=== PATIENT | female | born 1940 | race Two or more races ===

== ENCOUNTER 2020-12-11 01:49 | Inpatient (IN) | payer MEDICARE, BC ==
[~2020-12-11] VITALS: Ht 162.6 cm; Wt 72.6 kg
--- NOTE | 2020-12-11 02:03 | NUR ---
PT AAOX4. [id number] FROM HOME. 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 PER RA PT WAS GIVEN 1SPRAY OF NITRO AND ASPIRIN 162MG. PT PLACED IN BED 3 ON PREPARATION SUPERVISOR AND PULSE OX. PT DENIES CP, VSS. ERIKA KRISHNAMURTHY MD FOR EVAL.
--- NOTE | 2020-12-11 02:27 | NUR ---
BLOOD WORK COLLECTED, SENT TO LAB .
--- NOTE | 2020-12-11 02:27 | NUR ---
CALLED LAB FOR COVID SWAB
[2020-12-11 02:37] LABS: BASOPHILS % (AUTO) 0.6 % (0.0-2.0); EOSINOPHILS % (AUTO) 3.4 % (0.0-6.0); HEMATOCRIT 34 % (33-45); HEMOGLOBIN 11.2 g/dL (11.5-14.8); LYMPHOCYTES # (AUTO) 1.3 /CMM (0.8-4.8); LYMPHOCYTES % (AUTO) 26.7 % (20.0-44.0); MEAN CORPUSCULAR HGB CONC 33 g/dl (31.0-36.0); MEAN CORPUSCULAR VOLUME 92 fL (82-100); MONOCYTES # (AUTO) 0.6 /CMM (0.1-1.30); MONOCYTES % (AUTO) 11.3 % (2.0-12.0); NEUTROPHILS # (AUTO) 2.9 /CMM (1.8-8.9); PLATELET COUNT (AUTO) 167 /CMM (150-450); RED BLOOD CELL COUNT(AUTO) 3.68 MIL/uL (4.0-5.2)
--- NOTE | 2020-12-11 02:41 | NUR ---
COVID SWABBED, SENT TO LAB
[2020-12-11] MEDS ORDERED: IRBE150T28 PO (02:45)
[2020-12-11] MEDS ORDERED: ROSU20TA2 PO (02:45)
[2020-12-11] MEDS ORDERED: CARV25TA2 PO (02:45)
[2020-12-11] MEDS ORDERED: CHLO25TA2 PO (02:45)
[2020-12-11] MEDS ORDERED: CILO100T PO (02:45)
[2020-12-11] MEDS ORDERED: LEVO100T9 PO (02:45)
[2020-12-11] MEDS ORDERED: ASPI-1169 PO (02:45)
[2020-12-11] MEDS ORDERED: HYDR-4075 PO (02:45)
[2020-12-11 02:53] LABS: CALCIUM, SERUM 9.4 mg/dL (8.5-10.1); CARBON DIOXIDE 23 mmol/L (21-32); CHLORIDE 106 mmol/L (98-107); CREATININE 1.6 mg/dL (0.6-1.3); GLUCOSE 121 mg/dL (74-106); POTASSIUM 4.8 mmol/L (3.5-5.1); SODIUM SERUM 140 mmol/L (136-145); UREA NITROGEN, BLOOD 50 mg/dL (7-18)
[2020-12-11 03:07] LABS: B-TYPE NATRIURETIC PEPTIDE 556 PG/ML (0-125)
--- NOTE | 2020-12-11 03:10 | NUR ---
COVID ANTIGEN NEGATIVE
[2020-12-11] MEDS ORDERED: hydrALAZINE HCL IV 20 MG VIAL ONE (05:55)
--- NOTE | 2020-12-11 05:56 | NUR ---
PT NOTED HYPERTENSIVE, ER MD AWARE.
[2020-12-11] MEDS ORDERED: MAGNESIUM HYDROXIDE 30 ML UDC PO PRN (06:00)
[2020-12-11] MEDS ORDERED: ACETAMINOPHEN 325 MG TABLET PO PRN (06:00)
[2020-12-11] MEDS ORDERED: HYDROCODONE/APAP 5/325MG TABLET PO PRN (06:00)
[2020-12-11] MEDS ORDERED: MAG HYDROX/AL HYDROX/SIMETH 30 ML UDC PO PRN (06:00)
[2020-12-11] MEDS ORDERED: Z GUARD REMEDY 2 OZ OINT TP PRN (06:00)
[2020-12-11] MEDS ORDERED: ONDANSETRON HCL/PF 4 MG/2 ML VIAL IVP PRN (06:00)
[2020-12-11] MEDS ORDERED: ZOLPIDEM TARTRATE 5 MG TABLET PO PRN (06:00)
[2020-12-11] MEDS ORDERED: hydrALAZINE HCL IV 20 MG VIAL IV ONE (06:00)
--- NOTE | 2020-12-11 06:46 | NUR ---
PT AMBULATED TO THE RESTROOM AND BACK.
--- NOTE | 2020-12-11 06:49 | NUR ---
TELE BED 851-8
--- NOTE | 2020-12-11 07:07 | NUR ---
CALL TO GIVE REPORT, NURSE NOT AVAILABLE.
--- NOTE | 2020-12-11 08:03 | NUR ---
REPORT GIVEN TO FRANK SHANKAR. PT AWAITING TRANSFER TO FLOOR.
--- NOTE | 2020-12-11 08:30 | NUR ---
MECHANICAL MAINTENANCE TECHNICIAN NOTES RECEIVED PT FROM E.R. STAFF VIA [facility], PT IS AWAKE, ALERT AND ORIENTED, NO COMPLAINT OF CHEST PAIN, ASSISTED TO BED, MADE COMFORTABLE, RESPIRATIONS NORMAL, ROOM SET UP ORIENTATION PROVIDED TO PT, VERBALIZED UNDERSTANDING, VITALS TAKEN AND RECORDED, PLACED ON TELE MONITORING, SINUS RHYTHM ON THE MONITOR, CALL LIGHT WITHIN REACH, NEEDS ATTENDED.
[2020-12-11] MEDS ORDERED: CHLORTHALIDONE 50 MG PO SCH (09:00)
[2020-12-11] MEDS: CARVEDILOL 12.5 MG TABLET PO SCH ×2 (09:00→21:49)
[2020-12-11] MEDS: METOPROLOL TARTRATE INJ 5 MG/5 ML AMPUL IVP PRN ×10 (09:55→10:40)
[2020-12-11 10:00] VITALS: BP 141/69
[2020-12-11] MEDS ORDERED: NITROGLYCERIN 0.4 MG/TAB BOTTLE SL ONE (10:00)
[2020-12-11] MEDS ORDERED: METOPROLOL TARTRATE INJ 5 MG/5 ML AMPUL ONE ×4 (10:00→10:13)
[2020-12-11] MEDS ORDERED: NITROGLYCERIN 0.4 MG/TAB BOTTLE ONE (10:00)
[2020-12-11] MEDS ORDERED: IV NS 0.9% 250 ML IV ONE ×2 (10:19→10:30)
[2020-12-11] MEDS ORDERED: IOHEXOL-350 100 ML VIAL IV ONE ×2 (10:19→10:30)
--- NOTE | 2020-12-11 10:46 | NUR ---
RN NOTES: CTA procedure: explained the risk and benefits of CTA procedure, patient verbalizes understanding. Post CTA: patient able to tolerate the procedure without any discomfort, 50mg of metoprolol IVP and Nitroquick 1 tab given. No reaction noted at this time.
--- NOTE | 2020-12-11 11:00 | NUR ---
CTA PROCEDURE WELL TOLERATED BY THE PT. NOT IN RESPIRATORY DISTRESS, V/S STABLE, KEPT RESTED AND COMFORTABLE. REPORT GIVEN TO RAAD MARIE FOR ESPERANZA.
[2020-12-11] MEDS: CILOSTAZOL 100 MG TABLET PO SCH ×2 (11:06→16:19)
[2020-12-11] MEDS: ASPIRIN 81 MG TAB.CHEW PO SCH (11:06)
[2020-12-11] MEDS: LEVOTHYROXINE SODIUM 100 MCG TABLET PO SCH (11:07)
[2020-12-11] MEDS: LOSARTAN POTASSIUM 50 MG TABLET PO SCH (11:12)
[2020-12-11] MEDS: hydrALAZINE HCL 10 MG TABLET PO SCH (11:12)
[2020-12-11] MEDS: IV NS 0.9% 1,000 ML IV SCH ×2 (12:15→16:17)
--- NOTE | 2020-12-11 13:30 | NUR ---
HEALTH AND SAFETY REPRESENTATIVE NOTES PT IN BED, RESTING, NO COMPLAINT AT THIS TIME, COMPLETED CT ANGIO, TOLERATED WELL, PT SEEN BY DR. GOODE AND DR. SALAS, PLAN FOR ICT HELP DESK TECHNICIAN TOMORROW, PT INFORMED, IV FLUIDS INFUSING WELL, PT ABLE TO WALK TO THE BATHROOM WITH SLOW AND STEADY GAIT, NEEDS ATTENDED.
[2020-12-11 16:00] VITALS: BP 154/57
--- NOTE | 2020-12-11 19:15 | NUR ---
CATEGORY CONSULTANT OPENING NOTES: RECIVED PATIENT IN BED, AWAKE, A/O X4. NO S/S OD DISTRESS NOTED. CALLLIGHT WITHIN REACH. BED IN LOWEST AND LOCKED POSITION. INSTRUCTED PATIENT TO CALL FOR HELP OR ASSISTANCE WHEN OOB, PATIENT VERBALIZED UNDERSTANDING. NPO POST MN, PATIENT AWARE AND VERBALIZED UNDERSTANDING. POPPY VELA AWARE OF NPO POST MN.
[2020-12-11 20:00] VITALS: BP 142/66
[2020-12-11 20:21] LABS: BILIRUBIN,URINE NEGATIVE (NEGATIVE); COLOR,URINE YELLOW (YELLOW); LEUKOCYTE ESTERASE ,URINE NEGATIVE (NEGATIVE); NITRITE, URINE NEGATIVE (NEGATIVE); PH,URINE 5.5 (5.0-8.0); PROTEIN,URINE NEGATIVE (NEGATIVE); UGLUCOSE NEGATIVE (NEGATIVE); UROBILINOGEN,URINE 0.2 EU/dL (0.2)
[2020-12-11 20:30] LABS: CREATININE, URINE 46.4 MG/DL (30.0-125.0); URINE TOTAL PROTEIN 9.5 mg/dL (0-11.9)
[2020-12-11 21:38] LABS: EOSINOPHIL,URINE None Seen
[2020-12-11] MEDS: ATORVASTATIN 40 MG TABLET PO SCH (21:48)
--- NOTE | 2020-12-11 23:58 | NUR ---
PATIENT IS NOW NPO, PATIENT REMINDED.
[2020-12-12] VITALS: BP 150/63
[2020-12-12 04:00] VITALS: BP 151/66
--- NOTE | 2020-12-12 05:56 | NUR ---
REPAIR DEPARTMENT MANAGER CLOSING NOTES: PATIENT IN BED, ASLEEP, AROUSABLE. NO S/S OF DISTRESS NOTED. CALL LIGHT WITHIN REACH. BED IN LOWEST AND LOCKED POSITION. NPO POST MN. AMBULATORY WITH STEADY GAIT.
[2020-12-12 06:42] LABS: BASOPHILS % (AUTO) 0.8 % (0.0-2.0); EOSINOPHILS % (AUTO) 2.6 % (0.0-6.0); HEMATOCRIT 32 % (33-45); HEMOGLOBIN 10.7 g/dL (11.5-14.8); LYMPHOCYTES # (AUTO) 1.3 /CMM (0.8-4.8); LYMPHOCYTES % (AUTO) 26.3 % (20.0-44.0); MEAN CORPUSCULAR HGB CONC 33 g/dl (31.0-36.0); MEAN CORPUSCULAR VOLUME 90 fL (82-100); MONOCYTES # (AUTO) 0.6 /CMM (0.1-1.30); MONOCYTES % (AUTO) 11.4 % (2.0-12.0); NEUTROPHILS # (AUTO) 2.9 /CMM (1.8-8.9); NEUTROPHILS % (AUTO) 58.9 % (43.0-81.0); PLATELET COUNT (AUTO) 168 /CMM (150-450); RED BLOOD CELL COUNT(AUTO) 3.54 MIL/uL (4.0-5.2); WHITE BLOOD COUNT (AUTO) 4.9 K/uL (4.3-11.0)
[2020-12-12 07:02] LABS: ALBUMIN 3.1 g/dL (3.4-5.0); BILIRUBIN,TOTAL 0.5 mg/dL (0.2-1.0); CALCIUM, SERUM 9.3 mg/dL (8.5-10.1); CREATININE 1.1 mg/dL (0.6-1.3); MAGNESIUM 1.8 mg/dL (1.8-2.4); PHOSPHORUS 3.7 mg/dL (2.5-4.9); POTASSIUM 4.5 mmol/L (3.5-5.1); TOTAL PROTEIN, SERUM 6.1 g/dL (6.4-8.2)
--- NOTE | 2020-12-12 07:30 | NUR ---
MS/RN Opening note Patient received from pot runner. A/O X4, vital signs stable, denies any pain or discomfort at this time. Remains NPO at this time for cardiac cath later today. Heplock to right AC flushing well with normal saline, no signs of infiltration seen. All questions and concerns addressed. Safety measures in place, call light within reach, will continue to monitor and ensure safety.
[2020-12-12] MEDS: ASPIRIN 81 MG TAB.CHEW PO SCH ×2 (08:29→08:50)
[2020-12-12] MEDS: LEVOTHYROXINE SODIUM 100 MCG TABLET PO SCH ×2 (08:30→08:51)
[2020-12-12] MEDS: CILOSTAZOL 100 MG TABLET PO SCH ×2 (08:51→16:30)
[2020-12-12] MEDS ORDERED: HYDROCHLOROTHIAZIDE 50 MG TABLET PO SCH (09:00)
--- NOTE | 2020-12-12 09:00 | NUR ---
MS/RN Heplock New heplock inserted to right AC, 20g.
--- NOTE | 2020-12-12 09:27 | NUR ---
MS/RN S/B Dr Cintron Seen by Dr Cintron - patient scheduled from heart cath later this morning.
[2020-12-12] MEDS: hydrALAZINE HCL 10 MG TABLET PO SCH (09:35)
[2020-12-12] MEDS: CARVEDILOL 12.5 MG TABLET PO SCH ×2 (09:36→21:28)
[2020-12-12] MEDS: LOSARTAN POTASSIUM 50 MG TABLET PO SCH (09:37)
[2020-12-12] MEDS: HYDROCHLOROTHIAZIDE 25 MG TABLET PO SCH (09:49)
--- NOTE | 2020-12-12 12:05 | NUR ---
MS/RN Dr Serraon Call received from Dr Serrano - cardiac cath canceled, patient may eat and drink. NPO from midnight, cath rescheduled for 8a.
--- NOTE | 2020-12-12 12:17 | NUR ---
MS/RN Dr Serrano (2nd call) Second call received from Dr Serrano - cath now able to be preformed this afternoon. MD made aware that patient had already eaten one chocolate pudding, per Dr Serrano, okay to proceed with test. NPO reordered.
--- NOTE | 2020-12-12 14:55 | NUR ---
MS/RN Device Sales Consultant Patient taken to agriculture laborer, and will be transferred to ICU room 256 post procedure.
[2020-12-12] MEDS ORDERED: IV NS 0.9% 1,000 ML ONE (15:00)
[2020-12-12] MEDS ORDERED: IV SET PRIMARY PUMP SET 1 EA INFUS.SET MC ONE (15:00)
[2020-12-12] MEDS ORDERED: LIDOCAINE HCL/MPF 1% 30 ML VIAL IJ ONE (15:01)
[2020-12-12] MEDS ORDERED: NITROGLYCERIN ICAR 1,000 MCG/10 ML VIAL ICAR ONE (15:01)
[2020-12-12] MEDS ORDERED: FENTANYL PF 100MCG/2ML AMPUL ONE (15:01)
[2020-12-12] MEDS ORDERED: IODIXANOL 150 ML IV ONE (15:01)
[2020-12-12] MEDS ORDERED: MIDAZOLAM HCL 2 MG/2ML VIAL ONE (15:01)
--- NOTE | 2020-12-12 15:45 | NUR ---
MS/RN Belongings All personal belongings, including iphone and ipad sent to ICU. Both signed for on belongings list.
[2020-12-12] MEDS ORDERED: NICARDIPINE HCL 25 MG/10 ML VIAL IV ONE (16:03)
[2020-12-12] MEDS ORDERED: HEPARIN SODIUM, PORCINE 5000 UNITS/1 ML VIAL ONE (16:04)
[2020-12-12] MEDS ORDERED: HEPARIN SODIUM, PORCINE 1,000 UNIT/ML VIAL ONE (16:04)
--- NOTE | 2020-12-12 16:35 | NUR ---
PROP DRAWER NOTES REPORT RECEIVED FROM OR NURSEJARRETT. PATIENT GOING BACK TO 3W. NO PUBLIC RELATIONS MANAGER. ONLY DIAGNOSTIC WAS DONE DUE TO POSSIBLE COMPLICATION/RISK. SEDATION GIVEN: 1 VERSED, 50 FENTANYL. HEPARIN 7,000. CHARGE NURSE NOTIFIED.
--- NOTE | 2020-12-12 18:36 | NUR ---
MS/RN TR Band 3ml of air removed from TR band at 1835. No signs of bleeding, patient has full sensation to extremity.
--- NOTE | 2020-12-12 18:52 | NUR ---
MS/RN TR Band 3ml air removed from TR band at 1850 for a total of 6ml, no signs of bleeding.
--- NOTE | 2020-12-12 19:10 | NUR ---
MS/RN TR Band 3ml of air removed from TR band at 1905 for a total of 9ml. No signs of bleeding, remains with full sensation to extremity.
--- NOTE | 2020-12-12 19:25 | NUR ---
MS/RN TR Band 3ml air removed from TR band, for total of 12ml. No signs of bleeding, full sensation to extremity.
--- NOTE | 2020-12-12 19:36 | NUR ---
MS/RN TR Band 3ml air removed from TR band for total of 15ml. No signs of bleeding, full range of motion and sensation to arm.
--- NOTE | 2020-12-12 19:54 | NUR ---
MS/TELE/RN REMOVED THE LAST 3 CC OF AIR FROM TR BAND. NO BLEEDING WAS NOTED AT THIS TIME, TR BAND WAS REMOVED AP PER ENDORSEMENT BY DAY SHIFT VICTOR M. WILL MONITOR FOR BLEEDING AND WILL FOLLOW PROTOCOL.
[2020-12-12 20:55] VITALS: BP 154/82
[2020-12-12] MEDS: ATORVASTATIN 40 MG TABLET PO SCH (21:28)
--- NOTE | 2020-12-13 00:10 | NUR ---
MS/TELE/RN PATIENT IS SLEEPING AT THIS TIME, APPEAR COMFORTABLE, NO SIGNS OF DISTRESS NOTED, NO BLEEDING AT RT. F/A NOTED, WILL CONTINUE TO MONITOR.
[2020-12-13 00:18] VITALS: BP 135/50
--- NOTE | 2020-12-13 04:24 | NUR ---
MS/ROSEMARY/RAAD AWAKE, C/O HEADACHE, TYLENOL 650 MG PO WAS GIVEN ORDERED. WILL MONITOR. Addendum: 12/13/20 at 0425 by LOUIS LOVE RN PLEASE DISREGARD ABOVE DOCUMENTATION. ENTERED IN ERROR.
[2020-12-13 04:26] VITALS: BP 159/67
--- NOTE | 2020-12-13 06:01 | NUR ---
MS/TELE/RN PATIENT IS SLEEPING AT THIS TIME, APPEAR COMFORTABLE, NO SIGNS OF DISTRESS NOTED, CALL LIGHT IN REACH, ALL NEEDS ATTENDED AT THIS TIME, WILL CONTINUE TO MONITOR.
[2020-12-13 06:18] LABS: BASOPHILS % (AUTO) 0.7 % (0.0-2.0); EOSINOPHILS % (AUTO) 2.8 % (0.0-6.0); HEMATOCRIT 32 % (33-45); HEMOGLOBIN 10.8 g/dL (11.5-14.8); LYMPHOCYTES # (AUTO) 1.2 /CMM (0.8-4.8); LYMPHOCYTES % (AUTO) 22.6 % (20.0-44.0); MEAN CORPUSCULAR HGB CONC 34 g/dl (31.0-36.0); MEAN CORPUSCULAR VOLUME 90 fL (82-100); MONOCYTES # (AUTO) 0.7 /CMM (0.1-1.30); MONOCYTES % (AUTO) 12.9 % (2.0-12.0); NEUTROPHILS # (AUTO) 3.1 /CMM (1.8-8.9); PLATELET COUNT (AUTO) 153 /CMM (150-450); RED BLOOD CELL COUNT(AUTO) 3.55 MIL/uL (4.0-5.2); WHITE BLOOD COUNT (AUTO) 5.1 K/uL (4.3-11.0)
[2020-12-13 06:41] LABS: CALCIUM, SERUM 8.9 mg/dL (8.5-10.1); MAGNESIUM 1.6 mg/dL (1.8-2.4); POTASSIUM 4.3 mmol/L (3.5-5.1)
--- NOTE | 2020-12-13 07:53 | NUR ---
HARNESS PULLER OPENING NOTE PT RECEIVED IN BED, AWAKE, AROUSABLE AND RESPONSIVE. PT IS A/O X 4, VERBAL, BAHRAINI SPEAKING, ABLE TO MAKE NEEDS KNOWN WITH NO C/O PAIN OR S/SX OF ACUTE DISTRESS AT THIS TIME. PT IS ON ROOM AIR WITH NO S/SX OF RESPIRATORY DISTRESS AT THIS TIME. PT'S TELE MONITOR SHOWS NSR AT 68 BPM, IN NO CARDIAC DISTRESS. PT HAS AN IV ACCESS ON RIGHT AC G#20, PATENT, INTACT AND FLUSHING WELL WITH NO S/S OF INFECTION OR IRRITATION. SAFETY MEASURES IN PLACE: BED IN LOWEST, LOCKED POSITION WITH BOTH UPPER SIDE RAILS UP X 2. CALL LIGHT PLACED WITHIN REACH. WILL CONTINUE TO MONITOR.
[2020-12-13 08:00] VITALS: BP 155/74
[2020-12-13 08:06] LABS: PTH, INTACT 49 pg/mL (15-65)
[2020-12-13] MEDS: CILOSTAZOL 100 MG TABLET PO SCH (08:18)
[2020-12-13] MEDS: LEVOTHYROXINE SODIUM 100 MCG TABLET PO SCH (08:19)
[2020-12-13] MEDS: CARVEDILOL 12.5 MG TABLET PO SCH (08:20)
[2020-12-13] MEDS: LOSARTAN POTASSIUM 50 MG TABLET PO SCH (08:20)
[2020-12-13] MEDS: ASPIRIN 81 MG TAB.CHEW PO SCH (08:20)
[2020-12-13] MEDS: hydrALAZINE HCL 10 MG TABLET PO SCH (08:20)
[2020-12-13] MEDS: HYDROCHLOROTHIAZIDE 25 MG TABLET PO SCH (08:21)
[2020-12-13 08:55] LABS: IRON, SERUM 51 ug/dl (50-175); TOTAL IRON BINDING CAPACITY 238 ug/dl (250-450)
[2020-12-13] MEDS: hydrALAZINE HCL 50 MG TABLET PO SCH ×2 (08:58→12:25)
[2020-12-13] MEDS ORDERED: AMLODIPINE BESYLATE 5 MG TABLET PO SCH (09:00)
[2020-12-13] MEDS ORDERED: VALSARTAN 80 MG TABLET PO SCH (09:00)
[2020-12-13 09:14] LABS: FERRITIN 135 ng/mL (8-388)
[2020-12-13] MEDS ORDERED: Magnesium 1GM/D5W 100ML PREMIX 100 ML IV SCH (11:00)
[2020-12-13 11:07] LABS: *SPE A/G RATIO 1.2 (0.7-1.7); *SPE ALBUMIN 3.1 g/dL (2.9-4.4); *SPE ALPHA-1-GLOBULIN 0.2 g/dL (0.0-0.4); *SPE ALPHA-2-GLOBULIN 0.7 g/dL (0.4-1.0); *SPE BETA GLOBULIN 0.9 g/dL (0.7-1.3); *SPE GLOBULIN, TOTAL 2.6 g/dL (2.2-3.9); *SPE M-SPIKE Not Observed g/dL (Not Observed); *SPEGAMMA GLOBULIN 0.7 g/dL (0.4-1.8)
[2020-12-13] MEDS ORDERED: AMLO-212 PO (11:37)
[2020-12-13] MEDS ORDERED: CARV12.52 PO (11:37)
[2020-12-13] MEDS ORDERED: HYDR-4077 PO (11:37)
[2020-12-13] MEDS ORDERED: NITR0.4T48 SL (11:37)
[2020-12-13] MEDS ORDERED: VALS80TA2 PO (11:37)
[2020-12-13] MEDS ORDERED: MAGNESIUM OXIDE 400 MG TABLET PO ONE (12:00)
[2020-12-13 12:25] VITALS: BP 140/65
--- NOTE | 2020-12-13 14:06 | NUR ---
MS PYTHON JAVA DEVELOPER NOTE PT CLEARED FOR DISCHARGE TODAY. PT IS A/O X 4, VERBAL, ITALIAN SPEAKING, ABLE TO MAKE NEEDS KNOWN WITH NO C/O PAIN OR S/SX OF ACUTE DISTRESS AT THIS TIME. PT IS MEDICALLY STABLE. VSS. PT IS ON ROOM AIR WITH ON S/SX OF RESPIRATORY DISTRESS NOTED. PT'S TELE MONITOR D/C, WITH NO S/SX OF CARDIAC DISTRESS AT THIS TIME. IV ACCESS REMOVED, WITH NO S/SX OF BLEEDING OR INFECTION. ID BAND/ARM BAND REMOVED. PT'S BELONGINGS LIST AND D/C PAPERWORK SIGNED, WITNESSED, COPIED AND GIVEN TO PT/FILED IN CHART. DISCHARGE INSTRUCTIONS AND EDUCATION GIVEN TO PT AND FAMILY (SON - GORDO) WITH SUCCESSFUL RETURN DEMONSTRATION AND VERBALIZATION OF UNDERSTANDING. PT STATES SHE UNDERSTANDS MEDICAL CONDITION AND ALL DISCHARGE INSTRUCTIONS. ALL CARE, NEEDS, MEDICATIONS, AND TREATMENTS GIVEN TO PT ORDERED IN A TIMELY MANNER PER FACILITY PROTOCOL. PT LEFT UNIT AT 1359 VIA WHEELCHAIR ACCOMPANIED BY ME AND SON, GORDO TO LOBBY. PT LEFT WITH SON, GORDO, VIA PRIVATE VEHICLE. CHARGE NURSE AND AWARE.
== END 2020-12-13 14:15 | disposition home or self-care (01) | DRG 286 ==
LOC: ER 01:52 → TELE 06:52 → ICU 12-12 15:25 → TELE 12-12 16:53 → MED 12-13 08:39
PROVIDERS: ADMIT Nurse Practitioner Acute Care; ATTEND Nurse Practitioner Acute Care
PROC: 4A023N7 Measurement of Cardiac Sampling and Pressure, Left Heart, Percutaneous Approach (ICD-10-PCS; principal; 2020-12-12)
PROC: B215YZZ Fluoroscopy of Left Heart using Other Contrast (ICD-10-PCS; 2020-12-12)
PROC: 4A0335C Measurement of Arterial Flow, Coronary, Percutaneous Approach (ICD-10-PCS; 2020-12-12)
DX: I25.110 Atherosclerotic heart disease of native coronary artery with unstable angina pectoris (principal); N17.0 Acute kidney failure with tubular necrosis; N10 Acute pyelonephritis; E78.5 Hyperlipidemia, unspecified; E03.9 Hypothyroidism, unspecified; I70.0 Atherosclerosis of aorta; Z20.822 Contact with and (suspected) exposure to COVID-19; M50.30 Other cervical disc degeneration, unspecified cervical region; I12.9 Hypertensive chronic kidney disease with stage 1 through stage 4 chronic kidney disease, or unspecified chronic kidney disease; N18.9 Chronic kidney disease, unspecified; I05.9 Rheumatic mitral valve disease, unspecified
CPT/HCPCS: 36415; 71045-TC; 75574; 76770-TC; 80048-TC; 80053-TC; 80061-TC; 82550-TC; 82570-TC; 82728-TC; 83540-TC; 83735-TC; 83880; 83970; 84100-TC; 84155; 84155-TC; 84165; 84300-TC; 84484-TC; 85025-TC; 85730-TC; 87081-TC; 93307-TC; C1769; C9803; G0378; G0500; J0360; J1644; J2250; J3010; J3475; J3490; J7030; J7050; Q9967